=== PATIENT | male | born 1940 | race Caucasian/White ===

== ENCOUNTER 2023-01-05 21:26 | Inpatient (IN) ==
[2023-01-05 22:02] LABS: Basophils # (auto) 0.03 K/uL (0-0.2); Basophils % (auto) 0.5 %; Eosinophils % (auto) 3.4 %; Hematocrit (blood only) 27.4 % (42.0-52.0); Immature Granulocytes # (auto) 0.02 K/uL (0.01-0.20); Immature Granulocytes % (auto) 0.3 %; Lymphocytes # (auto) 1.82 K/uL (1.2-3.4); Lymphocytes % (auto) 30.5 %; Mean Corpuscular Hemoglobin 32.4 pg (25.0-34.0); Mean Corpuscular Hgb Conc 36.5 g/dL (32.0-36.0); Mean Corpuscular Volume 88.7 fL (80.0-100.0); Mean Platelet Volume 9.1 fL (9.4-12.4); Monocytes % (auto) 10.1 %; Neutrophils % (auto) 55.2 %; Platelet Count 194 K/uL (130-400); RDW Coefficient of Variation 11.3 % (11.5-14.5); Red Blood Count 3.09 M/uL (4.70-6.10); White Blood Count 5.97 K/ul (4.8-10.8)
[2023-01-05 22:43] LABS: Alanine Aminotransferase 20 U/L (7-52); Albumin Globulin Ratio 1.4 (0.9-2); Albumin Level 3.9 gm/dl (3.4-5.0); Alkaline Phosphatase 153 U/L (34-104); Anion Gap 10 (3-11); Aspartate Aminotransferase 26 U/L (13-39); BUN Creatinine Ratio 11.2 (10-20); Bilirubin,Total 0.8 mg/dl (0.2-1.0); Blood Urea Nitrogen 19 mg/dl (6-23); Calcium 7.7 mg/dl (8.5-10.1); Carbon Dioxide 21 mmol/L (21-32); Chloride 87 mmol/L (98-107); Est GFR (African American) 43.2 ml/min; Est GFR (Non-African American) 37.3 ml/min; Globulin 2.8 gm/dl (2.5-4.0); Glucose 88 mg/dl (70-99(Fasting)); Potassium 4.1 mmol/L (3.5-5.1); Sodium 118 mmol/L (136-145); Total Protein 6.7 gm/dl (6.0-8.3)
[2023-01-05] MEDS ORDERED: CALCIUM GLUCONATE 1,000 MG/60 ML BAG IV STA (23:04)
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
[2023-01-06] MEDS: SODIUM CHLORIDE 0.9% 1000ML 1,000 ML IV SCH (00:30)
[2023-01-06 00:52] LABS: Urine Potassium 27.5 mmol/L
[2023-01-06] MEDS ORDERED: ACETAMINOPHEN 325 MG TAB PO PRN (02:33)
[2023-01-06] MEDS ORDERED: Ativan IV Alcohol Withdrawal--Active Protocol IV PRN (02:33)
[2023-01-06] MEDS ORDERED: cloNIDine HCL 0.1 MG TAB PO PRN (02:33)
[2023-01-06] MEDS ORDERED: NITROGLYCERIN SL 0.4 MG/TAB TAB SL PRN (02:33)
[2023-01-06] MEDS ORDERED: LORazepam 2 MG/1 ML VIAL IV PRN ×3 (02:33)
[2023-01-06] MEDS ORDERED: POLYETHYLENE (MIRALAX) 17 GM PACK PO PRN (02:33)
[2023-01-06] MEDS ORDERED: GABAPENTIN 1200MG ALCOHOL WITHDRAWAL LOAD PO STA (02:33)
[2023-01-06] MEDS ORDERED: GABAPENTIN 600 MG TAB PO ONE (02:33)
[2023-01-06] MEDS ORDERED: MULTI-VITAMIN INFUSION 10 ML, THIAMINE HCL 100 MG, FOLIC ACID 1 MG in SODIUM CHLORIDE 0... IV ONE (03:00)
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
[2023-01-06 06:37] LABS: Basophils # (auto) 0.03 K/uL (0-0.2); Basophils % (auto) 0.6 %; Eosinophils # (auto) 0.27 K/uL (0-0.50); Eosinophils % (auto) 5.2 %; Hemoglobin 9.4 g/dl (14.0-18.0); Immature Granulocytes # (auto) 0.02 K/uL (0.01-0.20); Immature Granulocytes % (auto) 0.4 %; Lymphocytes # (auto) 1.46 K/uL (1.2-3.4); Lymphocytes % (auto) 28.2 %; Mean Corpuscular Hemoglobin 32.1 pg (25.0-34.0); Mean Corpuscular Hgb Conc 36.2 g/dL (32.0-36.0); Mean Corpuscular Volume 88.7 fL (80.0-100.0); Mean Platelet Volume 9.1 fL (9.4-12.4); Monocytes # (auto) 0.63 K/uL (0.11-0.59); Monocytes % (auto) 12.2 %; Neutrophils # (auto) 2.76 K/uL (1.40-6.50); Neutrophils % (auto) 53.4 %; Platelet Count 154 K/uL (130-400); RDW Coefficient of Variation 10.9 % (11.5-14.5); RDW Standard Deviation 35.6 fL (36.4-46.3); Red Blood Count 2.93 M/uL (4.70-6.10); White Blood Count 5.17 K/ul (4.8-10.8)
[2023-01-06 06:39] LABS: BUN Creatinine Ratio 10.6 (10-20); Calcium 7.2 mg/dl (8.5-10.1); Est GFR (African American) 53.7 ml/min; Est GFR (Non-African American) 46.3 ml/min
[2023-01-06 06:44] LABS: Albumin Level 3.4 gm/dl (3.4-5.0); Bilirubin Direct 0.2 mg/dl (0-0.2); Bilirubin,Total 0.9 mg/dl (0.2-1.0); Magnesium 0.6 mg/dl (1.7-2.4); Total Protein 5.9 gm/dl (6.0-8.3)
[2023-01-06 07:05] LABS: Vitamin B12 772 pg/ml (180-914)
[2023-01-06 07:15] LABS: BUN Creatinine Ratio 11.5 (10-20); Calcium 7.4 mg/dl (8.5-10.1); Creatinine Clr Calc Pharmacy 47.7 ml/min; Est GFR (African American) 59.2 ml/min; Est GFR (Non-African American) 51.1 ml/min
[2023-01-06] MEDS: MAGNESIUM SULFATE / D5W 1 GM/100 ML BAG IV SCH ×3 (07:25→11:34)
[2023-01-06] MEDS: ENALAPRIL MALEATE 10 MG TAB PO SCH (08:07)
[2023-01-06] MEDS: SUCRALFATE 1 GM TAB PO SCH (08:07)
[2023-01-06] MEDS: PANTOprazole 40 MG TAB PO SCH (08:08)
[2023-01-06] MEDS: ASPIRIN 81 MG ECTAB PO SCH (08:08)
[2023-01-06] MEDS: ATORVASTATIN 40 MG TAB PO SCH (08:08)
[2023-01-06] MEDS: CYANOCOBALAMIN (B-12) 500 MCG TABLET PO SCH (08:08)
[2023-01-06] MEDS: amLODIPine BESYLATE 5 MG TAB PO SCH (08:08)
[2023-01-06] MEDS: CLOPIDOGREL BISULFATE 75 MG TAB PO SCH (08:08)
[2023-01-06] MEDS: METOPROLOL SUCC 50MG EXT REL TAB PO SCH (08:08)
[2023-01-06] MEDS: HEPARIN SOD 5,000 UNIT/0.5 ML VIAL SQ SCH ×2 (08:09→19:32)
[2023-01-06] MEDS ORDERED: MAGNESIUM OXIDE 400 MG TAB PO SCH (09:00)
[2023-01-06] MEDS: GABAPENTIN 600 MG TAB PO SCH ×4 (10:30→17:13)
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
[2023-01-06 11:39] LABS: BUN Creatinine Ratio 11.5 (10-20); Calcium 7.5 mg/dl (8.5-10.1); Creatinine Clr Calc Pharmacy 48.1 ml/min; Est GFR (African American) 59.7 ml/min; Est GFR (Non-African American) 51.5 ml/min; Potassium 4.3 mmol/L (3.5-5.1)
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
[2023-01-06 16:53] LABS: BUN Creatinine Ratio 11.9 (10-20); Calcium 8.1 mg/dl (8.5-10.1); Creatinine Clr Calc Pharmacy 46.3 ml/min; Est GFR (African American) 57.1 ml/min; Est GFR (Non-African American) 49.2 ml/min; Magnesium 1.7 mg/dl (1.7-2.4)
[2023-01-06] MEDS: MAGNESIUM OXIDE 400 MG TAB PO SCH (19:32)
[2023-01-07] MEDS: GABAPENTIN 600 MG TAB PO SCH ×3 (00:06→15:38)
[2023-01-07] MEDS: SODIUM CHLORIDE 0.9% 1000ML 1,000 ML IV SCH ×2 (00:06→15:38)
[2023-01-07 00:13] LABS: BUN Creatinine Ratio 12.5 (10-20); Calcium 7.7 mg/dl (8.5-10.1); Est GFR (African American) 56.6 ml/min; Est GFR (Non-African American) 48.8 ml/min; Potassium 4.2 mmol/L (3.5-5.1)
[2023-01-07] MEDS: HEPARIN SOD 5,000 UNIT/0.5 ML VIAL SQ SCH ×2 (08:00→19:18)
[2023-01-07] MEDS: MAGNESIUM OXIDE 400 MG TAB PO SCH ×2 (08:00→19:18)
[2023-01-07] MEDS: SUCRALFATE 1 GM TAB PO SCH (08:00)
[2023-01-07] MEDS: ENALAPRIL MALEATE 10 MG TAB PO SCH (08:01)
[2023-01-07] MEDS: CLOPIDOGREL BISULFATE 75 MG TAB PO SCH (08:01)
[2023-01-07] MEDS: THIAMINE HCL 100 MG in SYRINGE 9 ML IV SCH (08:01)
[2023-01-07] MEDS: ATORVASTATIN 40 MG TAB PO SCH (08:01)
[2023-01-07] MEDS: METOPROLOL SUCC 50MG EXT REL TAB PO SCH (08:01)
[2023-01-07] MEDS: PANTOprazole 40 MG TAB PO SCH (08:01)
[2023-01-07] MEDS: ASPIRIN 81 MG ECTAB PO SCH (08:01)
[2023-01-07] MEDS: CYANOCOBALAMIN (B-12) 500 MCG TABLET PO SCH (08:01)
[2023-01-07] MEDS: FOLIC ACID 1 MG in SYRINGE 9.8 ML IV SCH (08:01)
[2023-01-07] MEDS: amLODIPine BESYLATE 5 MG TAB PO SCH (08:01)
[2023-01-07 09:40] LABS: BUN Creatinine Ratio 11.9 (10-20); Calcium 7.9 mg/dl (8.5-10.1); Creatinine Clr Calc Pharmacy 53.2 ml/min; Est GFR (African American) 67.1 ml/min; Est GFR (Non-African American) 57.9 ml/min; Potassium 4.2 mmol/L (3.5-5.1)
[2023-01-07] MEDS ORDERED: FUROSEMIDE INJ 20 MG/2 ML VIAL IV ONE (10:30)
--- NOTE | 2023-01-07 10:35 | Nephrology Progress Note ---
Date of Service January 07, 2023 Assessment & Plan (1) Chronic hyponatremia: Plan: critical hyponatremia on presentation without symptoms and of unknown acuity. chronic challenge for this patient. Goal sodium is low 130s for AM of 01/08 > on track currently. high risk for complications of overcorrection given EtOH abuse. behaving clinically as though he was volume depleted, though low solute diet may have had a role as well. -for now no fluid limit -increased NS rate to 100 mL/hr and gave IV lasix 10 mg X 1 -recheck bmp for 1600 ordered -maintain eukalemia (2) Hypomagnesemia: Plan: -recheck mag w/ next labs > improved to 1.7 on 01/07 afternoon but at risk to drop again as about 1/3 of IV mag is lost in urine generally -continue increased standing po mag to bid -keep on telemetry monitor until mag consistently > 1.2 -ordered recheck mag for this PM (3) Hypocalcemia: Plan: corrected calcium is 8.2 for his albumin; low but not critical; will monitor b/c can affect /impact mag (4) CKD (chronic kidney disease) stage 3, GFR 30-59 ml/min: Plan: new dx for him as OP > creatinine as OP has been 1.6-1.7 past 6 mos; improving here w/ care to 1.3 -1.4 -daily bmp Admission and Anticipated Discharge Date Admission Date: January 06, 2023 Subjective no interval clinical events. denies sob, n/v, confusion, edema, ambulatory d ysfunction, or cough Review of Systems Review of Systems: All systems reviewed & are unremarkable except as noted in Subjective Physical Exam Constitutional: well developed and well nourished; no acute distress (maneuvers readily for exam) Eyes: EOM intact bilaterally ENMT: Ears: no external ear abnormality Nose: no external nose abnormality Mouth: + dry oral mucous membranes Neck: no nuchal rigidity Respiratory: normal respiratory effort Auscultation: + diminished lung sounds Cardiovascular: Rate/Rhythm: regular rate and regular rhythm Heart Sounds: + murmur Extremities: no edema Gastrointestinal (Abdomen): Inspection/Auscultation: normal bowel sounds Percussion/Palpation: abdomen soft; abdomen nontender Musculoskeletal: Extremities: strength 5/5 throughout Skin: no rashes, warm and dry Psychiatric: Orientation: alert, oriented to person and oriented to place Results & Data ([place]) Vital Signs (Past 12 Hours) Vital Signs Temp Pulse Pulse Resp BP Pulse Ox O2 Del Method 01/07/23 09:00 54 L 01/07/23 09:06 36.3 C L 70 16 148/73 H 98 Room Air 01/07/23 04:00 36.3 C L 61 157/79 H 98 Room Air 01/06/23 23:25 36.3 C L 58 L 18 166/70 H 96 Room Air Laboratory Results 01/06/23 05:53 01/07/23 08:33
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
[2023-01-07 16:32] LABS: BUN Creatinine Ratio 11.5 (10-20); Calcium 8.1 mg/dl (8.5-10.1); Creatinine Clr Calc Pharmacy 51.4 ml/min; Est GFR (African American) 64.5 ml/min; Est GFR (Non-African American) 55.6 ml/min; Magnesium 1.4 mg/dl (1.7-2.4); Potassium 4.5 mmol/L (3.5-5.1)
[2023-01-07] MEDS ORDERED: MAGNESIUM SULFATE / D5W 1 GM/100 ML BAG IV ONE (17:57)
[2023-01-08] MEDS: SODIUM CHLORIDE 0.9% 1000ML 1,000 ML IV SCH ×2 (04:51→12:12)
[2023-01-08 06:23] LABS: BUN Creatinine Ratio 12.6 (10-20); Calcium 7.6 mg/dl (8.5-10.1); Creatinine Clr Calc Pharmacy 60.9 ml/min; Est GFR (African American) 79.1 ml/min; Est GFR (Non-African American) 68.3 ml/min; Magnesium 1.4 mg/dl (1.7-2.4); Phosphorus 2.2 mg/dl (2.5-4.9); Potassium 4.2 mmol/L (3.5-5.1)
[2023-01-08] MEDS: GABAPENTIN 600 MG TAB PO SCH ×2 (07:59→17:38)
[2023-01-08] MEDS: PANTOprazole 40 MG TAB PO SCH (08:00)
[2023-01-08] MEDS: SUCRALFATE 1 GM TAB PO SCH (08:00)
[2023-01-08] MEDS: METOPROLOL SUCC 50MG EXT REL TAB PO SCH (08:00)
[2023-01-08] MEDS: HEPARIN SOD 5,000 UNIT/0.5 ML VIAL SQ SCH ×2 (08:00→19:37)
[2023-01-08] MEDS: MAGNESIUM OXIDE 400 MG TAB PO SCH ×2 (08:00→19:37)
[2023-01-08] MEDS: ATORVASTATIN 40 MG TAB PO SCH (08:00)
[2023-01-08] MEDS: amLODIPine BESYLATE 5 MG TAB PO SCH (08:00)
[2023-01-08] MEDS: CYANOCOBALAMIN (B-12) 500 MCG TABLET PO SCH (08:00)
[2023-01-08] MEDS: ENALAPRIL MALEATE 10 MG TAB PO SCH (08:00)
[2023-01-08] MEDS: ASPIRIN 81 MG ECTAB PO SCH (08:00)
[2023-01-08] MEDS: CLOPIDOGREL BISULFATE 75 MG TAB PO SCH (08:00)
[2023-01-08] MEDS: THIAMINE HCL 100 MG in SYRINGE 9 ML IV SCH (08:01)
[2023-01-08] MEDS: FOLIC ACID 1 MG in SYRINGE 9.8 ML IV SCH (08:01)
[2023-01-08] MEDS ORDERED: MAGNESIUM SULFATE / D5W 1 GM/100 ML BAG IV ONE (08:15)
[2023-01-08] MEDS ORDERED: SODIUM CHLORIDE 0.9% 1000ML 1,000 ML IV SCH (11:15)
--- NOTE | 2023-01-08 13:21 | Hospitalist Progress Note ---
Date of Service January 08, 2023 Assessment & Plan (1) Hyponatremia: (2) Hypomagnesemia: (3) Alcohol abuse: (4) CKD (chronic kidney disease) stage 3, GFR 30-59 ml/min: Plan Sodium was 118 on presentation. Uosm 260.Serum osm 280 Likely due to poor solute intake, beer potomania Hyponatremia improving slowly with management. Na is 128 this morning Nephrology on board IVF NSS increased to 125/h per nephro Severe hypomagnesemia on presenation (Mag 0.6) Repleted Mag is 1.4 today Continue po mag. Give IV mag 1g AWSS protocol Monitor for withdrawal and manage accordingly Continue to encourage alcohol cessation. From my conversation with patient, he has memory deficits/cognitive impairment Has very limited insight into his medical problems Patient does not have medical making capacity at this time Psych eval noted PT/OT eval CM on board for discharge planning Continue aspirin, plavix for h/o CAD Continue amlodipine for hypertension. ACEI stopped per nephro recs Continue metoprolol succinate Continue omeprazole, sucralfate for Juárez's DVT ppx- hep sq Admission and Anticipated Discharge Date Admission Date: January 06, 2023 Subjective Patient seen and examined Denied any anxiety, hallucinations Denied nausea, vomiting, abd pain Denied chest pain, cough, shortness of breath Denied dysuria, freq, urgency Physical Exam Constitutional: + well hydrated; no acute distress Eyes: PERRL, conjunctivae normal, anicteric sclerae ENMT: external ear and nose normal, oropharynx normal Respiratory: normal respiratory effort, lungs clear to auscultation Cardiovascular: Rate/Rhythm: regular rate and regular rhythm S1 S2 Gastrointestinal (Abdomen): normal bowel sounds, soft, nontender, no hepatosplenomegaly Musculoskeletal: No pedal edema Neurologic: PERRL, EOMI, accommodation nl, no face palsy, no dysarthria Psychiatric: Alert and oriented to person, place and month Cooperative Results & Data Results & Data ([facility]) Vital Signs (Past 12 Hours) Vital Signs Temp Pulse Pulse Resp BP Pulse Ox O2 Del Method 01/08/23 13:01 36.7 C 78 18 127/77 98 Room Air 01/08/23 08:05 36.7 C 76 18 134/66 95 Room Air 01/08/23 07:10 65 01/08/23 03:28 36.3 C L 62 18 131/76 99 Room Air Laboratory Results Abnormal lab results 01/07/23 01/08/23 Range/Units 16:01 05:40 Sodium 126 L 128 L (136-145) mmol/L Chloride 95 L (98-107) mmol/L Glucose 105 H (70-99(Fasting)) mg/dl Calcium 8.1 L 7.6 L (8.5-10.1) mg/dl Phosphorus 2.2 L (2.5-4.9) mg/dl Magnesium 1.4 L 1.4 L (1.7-2.4) mg/dl
[2023-01-08 17:22] LABS: BUN Creatinine Ratio 10.3 (10-20); Calcium 7.7 mg/dl (8.5-10.1); Creatinine Clr Calc Pharmacy 53.6 ml/min; Est GFR (African American) 67.8 ml/min; Est GFR (Non-African American) 58.5 ml/min; Potassium 4.4 mmol/L (3.5-5.1)
--- NOTE | 2023-01-08 19:13 | Nephrology Progress Note ---
Date of Service January 08, 2023 Assessment & Plan (1) Chronic hyponatremia: Plan: critical hyponatremia on presentation without symptoms and of unknown acuity. chronic challenge for this patient. Goal sodium is low 130s for AM of 01/09 > on track currently. high risk for complications of overcorrection given EtOH abuse. behaving clinically as though he was volume depleted, though low solute diet may have had a role as well. -for now no fluid limit -recheck bmp for 1600 ordered >> based on this stopped NS d/t no chnage in saline -also stopped ACEI -maintain eukalemia (2) Hypomagnesemia: Plan: -recheck mag w/ next labs > improved to 1.7 on 01/07 afternoon but at risk to drop again as about 1/3 of IV mag is lost in urine generally -continue increased standing po mag to bid -keep on classroom monitor until mag consistently > 1.2 -ordered recheck mag for this PM >> 1.4 on bid supplements; will give mag IV 2 gm -recheck mag in AM (3) Hypocalcemia: Plan: corrected calcium is 8.2 for his albumin; low but not critical; will monitor b/c can affect /impact mag (4) CKD (chronic kidney disease) stage 3, GFR 30-59 ml/min: Plan: new dx for him as OP > creatinine as OP has been 1.6-1.7 past 6 mos; improving here w/ care to 1.3 -1.4 -daily bmp Admission and Anticipated Discharge Date Admission Date: January 06, 2023 Subjective deemed incompetent for goals of care decisions by psych > looking for placement. pt denies n/v, uncontrolled pain, edema, dyspnea Review of Systems Review of Systems: All systems reviewed & are unremarkable except as noted in Subjective Physical Exam Constitutional: well developed and well nourished; no acute distress (maneuvers readily for exam, sitting on side of bed on RA) Eyes: EOM intact bilaterally ENMT: Ears: no external ear abnormality Nose: no external nose abnormality Mouth: + dry oral mucous membranes Neck: no nuchal rigidity Respiratory: normal respiratory effort Auscultation: + diminished lung sounds Cardiovascular: RRR, no murmur, no edema Rate/Rhythm: regular rate and regular rhythm Heart Sounds: + murmur Extremities: no edema Gastrointestinal (Abdomen): Inspection/Auscultation: normal bowel sounds Percussion/Palpation: abdomen soft; abdomen nontender Musculoskeletal: Extremities: strength 5/5 throughout Skin: no rashes, warm and dry Psychiatric: Orientation: alert, oriented to person and oriented to place Results & Data ([facility]) Vital Signs (Past 12 Hours) Vital Signs Temp Pulse Pulse Resp BP Pulse Ox O2 Del Method 01/08/23 16:35 36.7 C 68 18 121/59 L 97 Room Air 01/08/23 16:10 73 01/08/23 13:01 36.7 C 78 18 127/77 98 Room Air 01/08/23 08:05 36.7 C 76 18 134/66 95 Room Air 01/08/23 07:10 65 Laboratory Results 01/06/23 05:53 01/08/23 16:50
[2023-01-08] MEDS: MAGNESIUM SULFATE / D5W 1 GM/100 ML BAG IV SCH ×2 (19:42→21:28)
[2023-01-09 06:40] LABS: Hematocrit (blood only) 27.2 % (42.0-52.0); Hemoglobin 9.5 g/dl (14.0-18.0); Mean Corpuscular Hemoglobin 32.1 pg (25.0-34.0); Mean Corpuscular Hgb Conc 34.9 g/dL (32.0-36.0); Mean Corpuscular Volume 91.9 fL (80.0-100.0); Mean Platelet Volume 9.3 fL (9.4-12.4); Platelet Count 162 K/uL (130-400); RDW Coefficient of Variation 11.5 % (11.5-14.5); RDW Standard Deviation 38.9 fL (36.4-46.3); Red Blood Count 2.96 M/uL (4.70-6.10); White Blood Count 5.84 K/ul (4.8-10.8)
[2023-01-09 06:47] LABS: BUN Creatinine Ratio 11.7 (10-20); Creatinine Clr Calc Pharmacy 56.5 ml/min; Est GFR (African American) 72.3 ml/min; Est GFR (Non-African American) 62.4 ml/min; Magnesium 1.8 mg/dl (1.7-2.4); Potassium 4.2 mmol/L (3.5-5.1)
[2023-01-09] MEDS: ASPIRIN 81 MG ECTAB PO SCH (07:43)
[2023-01-09] MEDS: amLODIPine BESYLATE 5 MG TAB PO SCH (07:43)
[2023-01-09] MEDS: ATORVASTATIN 40 MG TAB PO SCH (07:44)
[2023-01-09] MEDS: CLOPIDOGREL BISULFATE 75 MG TAB PO SCH (07:44)
[2023-01-09] MEDS: CYANOCOBALAMIN (B-12) 500 MCG TABLET PO SCH (07:44)
[2023-01-09] MEDS: HEPARIN SOD 5,000 UNIT/0.5 ML VIAL SQ SCH ×2 (07:44→20:13)
[2023-01-09] MEDS: METOPROLOL SUCC 50MG EXT REL TAB PO SCH (07:45)
[2023-01-09] MEDS: THIAMINE HCL 100 MG in SYRINGE 9 ML IV SCH (07:45)
[2023-01-09] MEDS: MAGNESIUM OXIDE 400 MG TAB PO SCH ×2 (07:45→20:13)
[2023-01-09] MEDS: FOLIC ACID 1 MG in SYRINGE 9.8 ML IV SCH (07:45)
[2023-01-09] MEDS: PANTOprazole 40 MG TAB PO SCH (07:45)
[2023-01-09] MEDS: SUCRALFATE 1 GM TAB PO SCH (07:46)
--- NOTE | 2023-01-09 10:41 | Nephrology Progress Note ---
Date of Service January 09, 2023 Assessment & Plan Admission and Anticipated Discharge Date Admission Date: January 06, 2023 Subjective Assessment & Plan (1) Chronic hyponatremia: Plan: critical hyponatremia on presentation without symptoms and of unknown acuity. chronic challenge for this patient. etiology Multifactorial from Excessive fluids/Low Solid Diet/Some degree of SIADH. For now correcting nicely at correct rate. No need of any iv fluids or meds. (2) Hypomagnesemia: Plan: Now normal. (3) Hypocalcemia: Plan: Now better (4) CKD (chronic kidney disease) stage 3, GFR 30-59 ml/min: Plan: creatinine has been 1.6-1.7 past 6 mos Now better and down to 1.1. Subjective looking for placement. pt denies n/v, uncontrolled pain, edema, dyspnea Review of Systems Review of Systems: All systems reviewed & are unremarkable except as noted in Subjective Physical Exam Constitutional: well developed and well nourished; no acute distress (maneuvers readily for exam, sitting on side of bed on RA) Eyes: EOM intact bilaterally ENMT: Ears: no external ear abnormality Nose: no external nose abnormality Mouth: + dry oral mucous membranes Neck: no nuchal rigidity Respiratory: normal respiratory effort Auscultation: + diminished lung sounds Cardiovascular: RRR, no murmur, no edema Rate/Rhythm: regular rate and regular rhythm Heart Sounds: + murmur Extremities: no edema Gastrointestinal (Abdomen): Inspection/Auscultation: normal bowel sounds Percussion/Palpation: abdomen soft; abdomen nontender Musculoskeletal: Extremities: strength 5/5 throughout Skin: no rashes, warm and dry Psychiatric: Orientation: alert, oriented to person and oriented to place Results & Data ([facility]) Vital Signs (Past 12 Hours) Vital Signs Temp Pulse Resp BP Pulse Ox O2 Del Method 01/09/23 07:56 36.7 C 63 16 157/72 H 98 Room Air 01/09/23 02:25 36.4 C L 73 18 129/73 98 Room Air 01/08/23 23:32 36.4 C L 68 18 145/67 H 97 Room Air
--- NOTE | 2023-01-09 13:54 | Hospitalist Progress Note ---
Date of Service January 09, 2023 Assessment & Plan (1) Hyponatremia: (2) Hypomagnesemia: (3) Alcohol abuse: (4) CKD (chronic kidney disease) stage 3, GFR 30-59 ml/min: Plan Sodium was 118 on presentation. Uosm 260.Serum osm 280 Likely due to poor solute intake, beer potomania Hyponatremia improved slowly with management. Na is 129 this morning Nephrology on board Severe hypomagnesemia on presentation (Mag 0.6) Repleted Mag is 1.8 today Continue po mag. No signs of alcohol withdrawal Continue to encourage alcohol cessation. Patient has memory deficits/cognitive impairment Has very limited insight into his medical problems Patient does not have medical making capacity at this time Psych eval noted PT/OT eval noted. SNF recommended CM on board for discharge planning Continue aspirin, plavix for h/o CAD Continue amlodipine for hypertension. ACEI stopped per nephro recs Continue metoprolol succinate Continue omeprazole, sucralfate for Juárez's DVT ppx- hep sq Admission and Anticipated Discharge Date Admission Date: January 06, 2023 Subjective Patient seen and examined No new complaints today Denied any anxiety, hallucinations Denied nausea, vomiting, abd pain, diarrhea Denied chest pain, cough, shortness of breath Denied dysuria, freq, urgency Physical Exam Constitutional: + well hydrated; no acute distress Eyes: PERRL, conjunctivae normal, anicteric sclerae ENMT: external ear and nose normal, oropharynx normal Respiratory: normal respiratory effort, lungs clear to auscultation Cardiovascular: Rate/Rhythm: regular rate and regular rhythm S1 S2 Gastrointestinal (Abdomen): normal bowel sounds, soft, nontender, no hepatosplenomegaly Musculoskeletal: no cyanosis or clubbing, extremities motor strength 5/5 Neurologic: PERRL, EOMI, accommodation nl, no face palsy, no dysarthria Psychiatric: Alert oriented to person, knows he is in a hospital but does not recall name or location, not oriented to time Cooperative Results & Data Results & Data ([place]) Vital Signs (Past 12 Hours) Vital Signs Temp Pulse Resp BP Pulse Ox O2 Del Method 01/09/23 11:37 36.4 C L 61 18 145/69 H 99 Room Air 01/09/23 07:56 36.7 C 63 16 157/72 H 98 Room Air 01/09/23 02:25 36.4 C L 73 18 129/73 98 Room Air Laboratory Results Abnormal lab results 01/08/23 01/09/23 01/09/23 Range/Units 16:50 05:27 05:27 RBC 2.96 L (4.70-6.10) M/uL Hgb 9.5 L (14.0-18.0) g/dl Hct 27.2 L (42.0-52.0) % MPV 9.3 L (9.4-12.4) fL Sodium 127 L 129 L (136-145) mmol/L Glucose 100 H (70-99(Fasting)) mg/dl Calcium 7.7 L 8.0 L (8.5-10.1) mg/dl
[2023-01-09] MEDS: GABAPENTIN 600 MG TAB PO SCH (17:11)
[2023-01-10 06:39] LABS: BUN Creatinine Ratio 13.7 (10-20); Calcium 8.3 mg/dl (8.5-10.1); Creatinine Clr Calc Pharmacy 61.5 ml/min; Est GFR (African American) 80.1 ml/min; Est GFR (Non-African American) 69.1 ml/min; Magnesium 1.4 mg/dl (1.7-2.4); Potassium 4.1 mmol/L (3.5-5.1)
[2023-01-10] MEDS ORDERED: MAGNESIUM SULFATE / D5W 1 GM/100 ML BAG IV ONE (07:52)
[2023-01-10] MEDS: ATORVASTATIN 40 MG TAB PO SCH (08:29)
[2023-01-10] MEDS: HEPARIN SOD 5,000 UNIT/0.5 ML VIAL SQ SCH ×2 (08:29→21:10)
[2023-01-10] MEDS: amLODIPine BESYLATE 5 MG TAB PO SCH (08:29)
[2023-01-10] MEDS: CLOPIDOGREL BISULFATE 75 MG TAB PO SCH (08:29)
[2023-01-10] MEDS: MAGNESIUM OXIDE 400 MG TAB PO SCH ×2 (08:29→21:11)
[2023-01-10] MEDS: SUCRALFATE 1 GM TAB PO SCH (08:29)
[2023-01-10] MEDS: THIAMINE HCL 100 MG in SYRINGE 9 ML IV SCH (08:29)
[2023-01-10] MEDS: FOLIC ACID 1 MG in SYRINGE 9.8 ML IV SCH (08:29)
[2023-01-10] MEDS: METOPROLOL SUCC 50MG EXT REL TAB PO SCH (08:30)
[2023-01-10] MEDS: ASPIRIN 81 MG ECTAB PO SCH (08:30)
[2023-01-10] MEDS: CYANOCOBALAMIN (B-12) 500 MCG TABLET PO SCH (08:30)
[2023-01-10] MEDS: PANTOprazole 40 MG TAB PO SCH (08:30)
--- NOTE | 2023-01-10 12:35 | Hospitalist Progress Note ---
Date of Service January 10, 2023 Assessment & Plan (1) Hyponatremia: (2) Hypomagnesemia: (3) Alcohol abuse: (4) CKD (chronic kidney disease) stage 3, GFR 30-59 ml/min: Plan Sodium was 118 on presentation. Uosm 260.Serum osm 280 Likely due to poor solute intake, beer potomania Hyponatremia improved slowly with management. Na still at 129 this morning Nephrology evaluation noted Severe hypomagnesemia on presentation (Mag 0.6) Repleted Mag is 1.4 today Continue po mag. Gave additional IV mag 1g today No signs of alcohol withdrawal Continue to encourage alcohol cessation. Patient has memory deficits/cognitive impairment Has very limited insight into his medical problems Patient does not have medical making capacity at this time Psych eval noted PT/OT eval noted. SNF recommended CM on board for discharge planning Continue aspirin, plavix for h/o CAD Continue amlodipine for hypertension. ACEI stopped per nephro recs Continue metoprolol succinate Continue omeprazole, sucralfate for Juárez's DVT ppx- hep sq CM working on placement Admission and Anticipated Discharge Date Admission Date: January 06, 2023 Subjective Patient seen and examined Denied any complaints Denied nausea, vomiting, abd pain, diarrhea Denied chest pain, cough, shortness of breath Denied dysuria, freq, urgency Physical Exam Constitutional: + well hydrated; no acute distress Eyes: PERRL, conjunctivae normal, anicteric sclerae ENMT: external ear and nose normal, oropharynx normal Respiratory: normal respiratory effort, lungs clear to auscultation Cardiovascular: Rate/Rhythm: regular rate and regular rhythm S1 S2 Gastrointestinal (Abdomen): normal bowel sounds, soft, nontender, no hepatosplenomegaly Musculoskeletal: No pedal edema Neurologic: PERRL, EOMI, accommodation nl, no face palsy, no dysarthria Alert and oriented to person, place only today Results & Data Results & Data ([facility]) Vital Signs (Past 12 Hours) Vital Signs Temp Pulse Resp BP BP Pulse Ox O2 Del Method 01/10/23 11:43 36.5 C 67 18 134/72 100 Room Air 01/10/23 07:45 36.7 C 61 18 158/77 H 99 Room Air 01/10/23 03:20 36.6 C 66 16 160/76 H 97 Room Air Laboratory Results Abnormal lab results 01/10/23 Range/Units 05:27 Sodium 129 L (136-145) mmol/L Calcium 8.3 L (8.5-10.1) mg/dl Magnesium 1.4 L (1.7-2.4) mg/dl
[2023-01-11 08:18] LABS: BUN Creatinine Ratio 16.2 (10-20); Calcium 8.8 mg/dl (8.5-10.1); Creatinine Clr Calc Pharmacy 53.6 ml/min; Est GFR (African American) 67.8 ml/min; Est GFR (Non-African American) 58.5 ml/min; Magnesium 1.5 mg/dl (1.7-2.4); Phosphorus 3.1 mg/dl (2.5-4.9); Potassium 4.1 mmol/L (3.5-5.1)
[2023-01-11] MEDS: ATORVASTATIN 40 MG TAB PO SCH (08:47)
[2023-01-11] MEDS: amLODIPine BESYLATE 5 MG TAB PO SCH (08:47)
[2023-01-11] MEDS: MAGNESIUM OXIDE 400 MG TAB PO SCH ×2 (08:47→21:47)
[2023-01-11] MEDS: PANTOprazole 40 MG TAB PO SCH (08:47)
[2023-01-11] MEDS: CYANOCOBALAMIN (B-12) 500 MCG TABLET PO SCH (08:47)
[2023-01-11] MEDS: FOLIC ACID 1 MG in SYRINGE 9.8 ML IV SCH (08:47)
[2023-01-11] MEDS: ASPIRIN 81 MG ECTAB PO SCH (08:47)
[2023-01-11] MEDS: HEPARIN SOD 5,000 UNIT/0.5 ML VIAL SQ SCH ×2 (08:48→20:52)
[2023-01-11] MEDS: METOPROLOL SUCC 50MG EXT REL TAB PO SCH (08:48)
[2023-01-11] MEDS: CLOPIDOGREL BISULFATE 75 MG TAB PO SCH (08:48)
[2023-01-11] MEDS: THIAMINE HCL 100 MG in SYRINGE 9 ML IV SCH (08:48)
[2023-01-11] MEDS: SUCRALFATE 1 GM TAB PO SCH (08:48)
--- NOTE | 2023-01-11 09:52 | Nephrology Progress Note ---
Date of Service January 11, 2023 Assessment & Plan Admission and Anticipated Discharge Date Admission Date: January 06, 2023 Subjective ssessment & Plan (1) Chronic hyponatremia: Plan: critical hyponatremia on presentation without symptoms and of unknown acuity. chronic challenge for this patient. etiology Multifactorial from Excessive beer+fluids/Low Solid Diet/Some degree of SIADH. For now Stable in the 129 range last few days. No need of any iv fluids or meds. (2) Hypomagnesemia: Plan: Now normal. (3) Hypocalcemia: Plan: Now normal. Likely related with low Mag/Alcohol (4) CKD (chronic kidney disease) stage 3, GFR 30-59 ml/min: Plan: creatinine has been 1.6-1.7 past 6 mos Now better and down to 1.1. Subjective looking for placement. pt denies n/v, uncontrolled pain, edema, dyspnea Review of Systems Review of Systems: All systems reviewed & are unremarkable except as noted in Subjective Physical Exam Constitutional: well developed and well nourished; no acute distress (maneuvers readily for exam, sitting on side of bed on RA) Eyes: EOM intact bilaterally ENMT: Ears: no external ear abnormality Nose: no external nose abnormality Mouth: + dry oral mucous membranes Neck: no nuchal rigidity Respiratory: normal respiratory effort Auscultation: + diminished lung sounds Cardiovascular: RRR, no murmur, no edema Rate/Rhythm: regular rate and r egular rhythm Heart Sounds: + murmur Extremities: no edema Gastrointestinal (Abdomen): Inspection/Auscultation: normal bowel sounds Percussion/Palpation: abdomen soft; abdomen nontender Musculoskeletal: Extremities: strength 5/5 throughout Skin: no rashes, warm and dry Psychiatric: Orientation: alert, oriented to person and oriented to place Results & Data ([facility]) Vital Signs (Past 12 Hours) Vital Signs Temp Pulse Pulse Resp BP BP Pulse Ox 01/11/23 07:38 36.5 C 78 16 159/69 H 96 01/11/23 03:19 36.4 C L 82 18 111/64 98 01/11/23 00:00 64 01/10/23 23:16 36.5 C 69 18 135/67 96 O2 Del Method 01/11/23 07:38 Room Air 01/11/23 03:19 Room Air 01/11/23 00:00 01/10/23 23:16 Room Air
[2023-01-11] MEDS: MAGNESIUM SULFATE / D5W 1 GM/100 ML BAG IV SCH ×2 (10:12→12:50)
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
[2023-01-12] MEDS: THIAMINE HCL 100 MG TAB PO SCH (08:40)
[2023-01-12] MEDS: FOLIC ACID 1 MG TAB PO SCH (08:40)
[2023-01-12] MEDS: MAGNESIUM OXIDE 400 MG TAB PO SCH ×2 (08:41→20:11)
[2023-01-12 09:01] LABS: BUN Creatinine Ratio 18.9 (10-20); Calcium 8.7 mg/dl (8.5-10.1); Creatinine Clr Calc Pharmacy 51.4 ml/min; Est GFR (African American) 64.5 ml/min; Est GFR (Non-African American) 55.6 ml/min; Magnesium 1.5 mg/dl (1.7-2.4); Potassium 4.2 mmol/L (3.5-5.1)
[2023-01-12] MEDS: METOPROLOL SUCC 50MG EXT REL TAB PO SCH (09:56)
[2023-01-12] MEDS: CYANOCOBALAMIN (B-12) 500 MCG TABLET PO SCH (09:56)
[2023-01-12] MEDS: amLODIPine BESYLATE 5 MG TAB PO SCH (09:56)
[2023-01-12] MEDS: SUCRALFATE 1 GM TAB PO SCH (09:56)
[2023-01-12] MEDS: ATORVASTATIN 40 MG TAB PO SCH (09:56)
[2023-01-12] MEDS: HEPARIN SOD 5,000 UNIT/0.5 ML VIAL SQ SCH ×2 (09:56→20:11)
[2023-01-12] MEDS: CLOPIDOGREL BISULFATE 75 MG TAB PO SCH (09:56)
[2023-01-12] MEDS: ASPIRIN 81 MG ECTAB PO SCH (09:56)
[2023-01-12] MEDS: PANTOprazole 40 MG TAB PO SCH (09:56)
[2023-01-12] MEDS: MAGNESIUM SULFATE / D5W 1 GM/100 ML BAG IV SCH ×4 (11:26→18:04)
--- NOTE | 2023-01-12 12:25 | Hospitalist Progress Note ---
Date of Service January 12, 2023 Assessment & Plan (1) Cognitive impairment: (2) Alcohol abuse: (3) CKD (chronic kidney disease) stage 3, GFR 30-59 ml/min: (4) Hypomagnesemia: (5) Chronic hyponatremia: (6) Anemia: (7) HTN (hypertension): Plan Sodium was 118 on presentation and work-up revealed hyponatremia was likely due to poor solute intake and beer potomania given his alcohol use. This has resolved to 129 which is holding stable. Per nephrology we will continue without additional IV fluids or medications at this point. This is likely in a baseline. Severe hypomagnesemia on presentation with a mag of 0.6 which is improved. Additional magnesium supplementation was given today which is likely in part related to ongoing PPI use. No signs of alcohol withdrawal and will continue to encourage alcohol cessation. At this point the patient has very limited insight into his medical problems and per psychiatry is not able to make decisions for himself. He is moving into personal-group home. His children are estranged and are not a part of the decision-making process at this point 01/12: doing well today, no changes, awaiting placement. 4 grams IV mag replacement given. Full code Dispo-to [facility] Kaitlynn Woodson DO [facility] Hospitalist Admission and Anticipated Discharge Date Admission Date: January 06, 2023 Subjective 82 yo M presents with confusion and abnormal labs. Today he is doing well and denies any issues No pain, CP, SOB Tolerating PO Accepting to go to [place] Review of Systems Review of Systems: all systems were reviewed and negative except as indicated on subjective above. Physical Exam Physical Exam: CONSTITUTIONAL: WNWD, vitals as above, generally well-appearing, NAD EYES: normal conjunctivae, no scleral icterus ENT: external ear and nose normal, NECK: trachea midline, RESPIRATORY: clear to auscultation bilaterally, no crackles, rales or wheezes, normal respiratory effort CARDIOVASCULAR: regular rate and rhythm, S1 and 2 heard without murmurs, gallops or rubs, no JVD, no peripheral edema CHEST: inspection of chest was normal GASTROINTESTINAL: soft, nontender, ND, no guarding MUSCULOSKELETAL: strength 5/5 throughout, head is normocephalic and atraumatic, neck supple, normal palpation of chest wall without tenderness SKIN: warm and dry NEUROLOGIC: No facial palsy, no dysarthria. CN 2-12 grossly intact, no sensory deficit, normal cognition, normal speech, no tremor (no asterixis) PSYCHIATRIC: alert cooperative and oriented to person, place and time. Euthymic mood, makes good eye contact, language grossly intact, cannot accurately state why he is in the hospital. Results & Data Results & Data ([facility]) Vital Signs (Past 12 Hours) Vital Signs Temp Pulse Resp BP Pulse Ox O2 Del Method 01/12/23 07:44 36.6 C 65 16 128/74 98 Room Air Laboratory Results [facility] 01/12/23 07:40 Sodium 128 L Potassium 4.2 Chloride 97 L Carbon Dioxide 27 BUN 23 Creatinine 1.22 Glucose 76 Calcium 8.7 Medications Administered Current Inpatient Medications Acetaminophen (Acetaminophen 325 Mg Tab) 650 mg PO Q4H PRN PRN Reason: Pain or Fever Stop: 02/05/23 02:32 Amlodipine Besylate (Amlodipine Besylate 5 Mg Tab) [facility] [place] Stop: 02/05/23 08:59 Last Admin: 01/12/23 09:56 Dose: 10 mg Aspirin (Aspirin 81 Mg Ectab) [facility] Stop: 02/05/23 08:59 Last Admin: 01/12/23 09:56 Dose: 81 mg Atorvastatin Calcium (Atorvastatin 40 Mg Tab) 40 mg PO DAILY [facility] Stop: 02/05/23 08:59 Last Admin: 01/12/23 09:56 Dose: 40 mg Clopidogrel Bisulfate (Clopidogrel Bisulfate 75 Mg Tab) [facility] [place] Stop: 02/05/23 08:59 Last Admin: 01/12/23 09:56 Dose: 75 mg Cyanocobalamin (Cyanocobalamin (B-12) 500 Mcg Tablet) 1,000 mcg PO QAM [facility] Stop: 02/05/23 08:59 Last Admin: 01/12/23 09:56 Dose: 1,000 mcg Folic Acid (Folic Acid 1 Mg Tab) 1 mg PO QAM [facility] Stop: 02/11/23 08:59 Last Admin: 01/12/23 08:40 Dose: 1 mg Heparin Sodium (Porcine) (Heparin Sod 5,000 Unit/0.5 Ml Vial) 5,000 units SQ Q12 [facility] Stop: 02/05/23 08:59 Last Admin: 01/12/23 09:56 Dose: 5,000 units Magnesium Sulfate/Dextrose (Magnesium Sulfate / D5w) 1 gm in 100 mls @ 50 mls/hr IV Q2H [facility] Stop: 01/12/23 18:14 Last Admin: 01/12/23 11:26 Dose: 50 mls/hr Magnesium Oxide (Magnesium Oxide 400 Mg Tab) 400 mg PO BID [facility] Stop: 02/05/23 20:59 Last Admin: 01/12/23 08:41 Dose: 400 mg Metoprolol Succinate (Metoprolol Succ 50mg Ext Rel Tab) [facility] Stop: 02/05/23 08:59 Last Admin: 01/12/23 09:56 Dose: 50 mg Nitroglycerin (Nitroglycerin Sl 0.4 Mg/Tab Tab) 0.4 mg SL UD PRN PRN Reason: Chest Pain Stop: 02/05/23 02:32 Pantoprazole Sodium (Pantoprazole 40 Mg Tab) 40 [facility] Stop: 02/05/23 08:59 Last Admin: 01/12/23 09:56 Dose: 40 mg Polyethylene Glycol (Polyethylene (Miralax) 17 Gm Pack) 17 gm PO DAILY PRN PRN Reason: Constipation Stop: 02/05/23 02:32 Sucralfate (Sucralfate 1 Gm Tab) 1 gm PO DAILY [facility] Stop: 02/05/23 08:59 Last Admin: 01/12/23 09:56 Dose: 1 gm Thiamine HCl (Thiamine Hcl 100 Mg Tab) 100 mg PO QAM [facility] Stop: 02/11/23 08:59 Last Admin: 01/12/23 08:40 Dose: 100 mg
[2023-01-12] MEDS ORDERED: hydrALAZINE HCL 20 MG/ML VIAL IV ONE (21:34)
[2023-01-12] MEDS ORDERED: OXYMETAZOLINE 0.05% 30 ML BTL STA (21:34)
--- NOTE | 2023-01-12 21:40 | Communication Note ---
Date of Service: January 12, 2023 Made aware by RN of right-sided epistaxis. Patient without headache complaints. Episodes at home spontaneously resolving as per patient. SBP 160s as per RN. AP Epistaxis Topical oxymetazoline followed by nasal clamp application CBC now Appropriate to hold antiplatelet Rx and heparin subcu for now.
[2023-01-12 22:09] LABS: Basophils # (auto) 0.03 K/uL (0-0.2); Basophils % (auto) 0.6 %; Eosinophils # (auto) 0.24 K/uL (0-0.50); Eosinophils % (auto) 4.7 %; Hemoglobin 9.8 g/dl (14.0-18.0); Immature Granulocytes # (auto) 0.01 K/uL (0.01-0.20); Immature Granulocytes % (auto) 0.2 %; Lymphocytes # (auto) 1.65 K/uL (1.2-3.4); Lymphocytes % (auto) 32.2 %; Mean Corpuscular Hemoglobin 31.8 pg (25.0-34.0); Mean Corpuscular Volume 90.9 fL (80.0-100.0); Mean Platelet Volume 9.1 fL (9.4-12.4); Monocytes # (auto) 0.62 K/uL (0.11-0.59); Monocytes % (auto) 12.1 %; Neutrophils # (auto) 2.57 K/uL (1.40-6.50); Neutrophils % (auto) 50.2 %; Platelet Count 173 K/uL (130-400); RDW Coefficient of Variation 11.7 % (11.5-14.5); RDW Standard Deviation 38.5 fL (36.4-46.3); Red Blood Count 3.08 M/uL (4.70-6.10); White Blood Count 5.12 K/ul (4.8-10.8)
[2023-01-12 22:27] LABS: Prothrombin Time 10.7 Seconds (9.0-12.0)
[2023-01-13] MEDS: MAGNESIUM OXIDE 400 MG TAB PO SCH (08:38)
[2023-01-13] MEDS: amLODIPine BESYLATE 5 MG TAB PO SCH (08:39)
[2023-01-13] MEDS: FOLIC ACID 1 MG TAB PO SCH (08:39)
[2023-01-13] MEDS: METOPROLOL SUCC 50MG EXT REL TAB PO SCH (08:39)
[2023-01-13] MEDS: PANTOprazole 40 MG TAB PO SCH (08:39)
[2023-01-13] MEDS: THIAMINE HCL 100 MG TAB PO SCH (08:39)
[2023-01-13] MEDS: ATORVASTATIN 40 MG TAB PO SCH (08:39)
[2023-01-13] MEDS: SUCRALFATE 1 GM TAB PO SCH (08:39)
[2023-01-13] MEDS: CYANOCOBALAMIN (B-12) 500 MCG TABLET PO SCH (08:40)
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
--- NOTE | 2023-01-20 14:38 | Coding Query ---
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 chronic challenge for this patient. etiology Multifactorial from Excessive beer+fluids/Low Solid Diet/Some degree of SIADH", and currently, there is no documentation by attending physicians of SIADH and the Discharge Summary currently documents, regarding hyponatremia, "Sodium was 118 on presentation and work-up revealed hyponatremia was likely due to poor solute intake and beer potomania given his alcohol use. This has resolved to 129 which is holding stable". Please specify below, in your clinical opinion, regarding Hyponatremia: ( x ) Hyponatremia likely due to poor solute intake and beer potomania given his alcohol use and is multifactorial from excessive beer+fluids/Low Solid Diet and also SIADH ( ) Hyponatremia likely due to poor solute intake and beer potomania and NOT from SIADH. SIADH is Ruled-Out ( ) Other: Please Specify Physician's Response(s): Thank you Noy Morocho Principal Diagnosis: "that condition established after study, to be chiefly responsible for occasioning the admission of the patient to the hospital for care." Co-Existing Principal Diagnosis: "when two or more diagnoses equally meet the criteria for principal diagnosis as determined by the circumstances of admission, diagnostic work up, and/or therapy provided, and the Alphabetic Index, Tabular List, or another coding guideline does not provide sequencing direction, any one of the diagnoses may be sequenced first." "When the physician has documented what appears to be a current diagnosis in the body of the record, but has not included the diagnosis in the final diagnostic statement, the physician should be asked whether the diagnosis should be added." (Source [facility] 2 QTR90. p3-4) JOHN
== END 2023-01-13 14:22 | disposition home or self-care (01) | DRG 644 ==
LOC: ED 21:26 → SUATTDRO 01-06 00:54 → 4W 01-06 00:54 → 3W 01-11 14:08